=== PATIENT | female | born 1975 | race Caucasian/White ===

== ENCOUNTER 2019-05-23 11:19 | Inpatient (IN) ==
[2019-05-23] MEDS: NS 1,000 ML IV SCH ×2 (12:06→19:48)
[2019-05-23 12:22] LABS: BASO# 0.04 X1000 (0.0-0.2); BASO% 0.3 % (0.0-0.8); EOS# 0.13 X1000 (0.0-0.7); EOS% 0.8 % (0.0-10.0); HEMATOCRIT 48.9 % (37.0-47.0); HEMOGLOBIN 16.1 g/dL (12.0-16.0); IMM GRAN# 0.04 X1000 (0.0-0.04); IMM GRAN% 0.3 % (0.0-0.5); LYMPH# 2.28 X1000 (1.2-3.4); LYMPH% 14.5 % (20.5-51.1); MCH 31.4 PG (27-31); MCHC 32.9 g/dL (33-37); MCV 95.3 FL (81-99); MONO# 1.28 X1000 (0.11-0.59); MONO% 8.1 % (1.7-9.3); MPV 11.6 FL (7.4-10.4); NEUT# 11.97 X1000 (1.4-6.5); PLT 374 X1000 (130-400); RBC 5.13 XMIL (4.2-5.4); WBC 15.74 X1000 (4.8-10.8)
[2019-05-23 12:37] LABS: INR 0.96; PROTIME 13.6 Seconds (11.0-16.0); PTT 32.9 Seconds (22.3-41.8)
[2019-05-23 12:47] LABS: ALB/GLOB RATIO 1.2; ALBUMIN 4.4 g/dL (3.5-5.0); CALCIUM 9.7 mg/dL (8.8-10.2); CREATININE 1.1 mg/dL (0.5-0.9); POTASSIUM 3.5 mmol/L (3.5-5.1); TOTAL BILIRUBIN 0.96 mg/dL (0.20-1.00)
--- NOTE | 2019-05-23 13:35 | Diag Imaging Result Doc PS360 ---
EXAM: CT ABD/PELVIS W/IV CONT ONLY 05/23/2019 HISTORY: abd pain, vomiting, blood per rectum TECHNIQUE: This exam was performed using automated exposure control, adjustment of mA or kV according to patient size, and/or use of iterative reconstruction technique. COMMENT: There is dependent atelectasis in the right lower lobe similar in appearance to the previous study of 07/19/2018. The stomach is not distended. The aorta is not distended. The mesenteric and renal arteries are patent. There are no gallstones. The adrenal glands and spleen are within normal limits. There is no evidence of acute disease in the liver. There is mucosal thickening in the splenic flexure and descending colon which was not the case on the previous study. The small bowel is not distended. There are multiple renal cysts. No evidence of hydronephrosis is present. There is no evidence of significant adenopathy. Pelvis: The appendix is normal in appearance. The sigmoid colon is relatively normal in appearance. There is no evidence of free fluid or masses. The regional skeleton appears to be intact. IMPRESSION: Colitis involving the splenic flexure and descending colon but apparently sparing the ascending colon, distal sigmoid colon and rectum. Electronically signed by Tj Sen 05/23/2019 1:33 PM
[2019-05-23 14:20] LABS: URINE SOURCE CLEAN CATCH
[2019-05-23 14:29] LABS: BILIRUBIN URINE NEGATIVE (NEGATIVE); BLOOD URINE SMALL (NEGATIVE); COLOR YELLOW; GLUCOSE URINE NEGATIVE (NEGATIVE); KETONE URINE NEGATIVE (NEGATIVE); LEUKOCYTES URINE NEGATIVE (NEGATIVE); NITRITE URINE NEGATIVE (NEGATIVE); PROTEIN URINE TRACE mg/dL (NEGATIVE); TURBIDITY URINE CLEAR (CLEAR); UROBILINOGEN URINE NORMAL (NORMAL)
[2019-05-23 14:30] LABS: UR EPITHELIAL CELLS <10 /HPF (<10); URINE BACTERIA 1+ /HPF; URINE RBC <10 /HPF (<10); URINE WBC <10 /HPF (<10)
[2019-05-23 14:45] LABS: SP GRAVITY URINE 1.005
[2019-05-23] MEDS ORDERED: TYLENOL PO ONE (15:12)
--- NOTE | 2019-05-23 16:15 | PROVIDER DOCUMENTATION ---
This chart was entered by Marsha Tarango Scribe, acting as scribe for Kashif Robbins MD. HPI-Abdominal Pain/GI Problem - General Chief Complaint: GI Bleed Stated Complaint: PASSING BLOOD Time Seen by Provider: 05/23/19 11:36 Source: patient Allergies/Adverse Reactions: Patient Allergies Allergy/AdvReac Type Severity Reaction Status Date / Time Latex, Natural Rubber Allergy Intermediate HIVES Verified 05/23/19 11:48 Home Medications: Home Medication List Medication Instructions Recorded Confirmed Last Taken Type Enalapril Maleate 12/24/17 12/24/17 Unknown History Eszopiclone 12/24/17 12/24/17 Unknown History Hydrochlorothiazide 25 mg PO DAILY 12/24/17 12/24/17 Unknown History Metoprolol [Lopressor] 50 mg PO BID 12/24/17 12/24/17 Unknown History Omeprazole [Prilosec] 20 mg PO DAILY #21 cap 12/24/17 Unknown Rx Ondansetron HCl [Zofran] 4 mg PO Q6HR PRN #10 tab 12/24/17 Unknown Rx Phentermine HCl 12/24/17 12/24/17 Unknown History Sucralfate [Carafate Liquid] 1 gm PO Q6HR #240 ml 12/24/17 Unknown Rx Verapamil HCl [Verapamil ER] 12/24/17 12/24/17 Unknown History Hydrocodone/Acetaminophen [[place] 1 ea PO Q4-6H PRN PRN #20 tab 07/19/18 Unknown Rx 10-325 Tablet] - History of Present Illness-ABD Nature of Presenting Problems: 43 y/o female presents to ED with abdominal pain, hematemesis, and nausea onset 3 days ago. Pt reports seeing bright red blood in her stool. Pt states she takes a lot of aspirin and aleve. Pt reports she has not been eating because it exacerbates her symptoms. Pt is alert and oriented. Abdominal Pain Onset Location: reports: generalized abdomen Pain Radiation: reports: no radiation Quality of Pain: reports: aching Severity in ED: reports: moderate Onset/Duration: reports: 3 days ago Timing: reports: still present Activities at Onset: reports: none Exposure to sick contacts?: No Modifying Factors: worse with: eating Associated Symptoms: reports: nausea, other (hematemesis; abdominal pain) Last BM: this morning Dark Stools Present?: reports: bright red blood Rectal Bleeding: reports: blood mixed with stool Rectal Pain: reports: none Similar Symptoms Previously?: No Recently seen or treated by another doctor?: No Review of Systems - Adult - REVIEW OF SYSTEMS - ADULT Constitutional: denies: chills, fever Eyes: reports: no symptoms reported Ears, Nose, Mouth & Throat: reports: no symptoms reported Cardiovascular: denies: chest pain, palpitations Respiratory: denies: cough, shortness of breath Gastrointestinal: reports: abdominal pain, hematemesis, nausea. denies: diarrhea, vomiting Genitourinary: reports: no symptoms reported Musculoskeletal: denies: back pain, joint pain Integumentary: reports: no symptoms reported Neurological: denies: dizziness/vertigo, seizure Psychiatric: reports: no symptoms reported Endocrine: reports: no symptoms reported Hematologic/Lymphatic: reports: no symptoms reported Allergic/Immunologic: reports: no symptoms reported All Other Systems: Reviewed and Negative Past History - Adult - PAST MEDICAL HISTORY-ADULT Review of Records: reports: Old Records Reviewed, Nursing Assessment Review, Medications Reviewed Major Childhood Illnesses: reports: denies history Cardiovascular: reports: HTN, heart valve problem, murmur, other (MVP) Respiratory: reports: denies history Gastrointestinal: reports: denies history Obstetrical/Gynecological: reports: denies history Genitourinary: reports: kidney stones Musculoskeletal: reports: denies history Neurological: reports: headaches/migraines Endocrine/Immune: reports: denies history Other Conditions: reports: denies history - PRIOR SURGERIES/PROCEDURES Surgical/Procedure History: reports: hysterectomy, BTL, breast (reduction), back/neck (cervical fusion) - PRIOR HOSPITALIZATIONS Prior Hospitalizations: reports: for similar symptoms - IMMUNIZATION STATUS Childhood Immunizations: See Nurse Assessment Flu Vaccine: See Nurse Assessment - FAMILY HISTORY Family History: cancer, HTN - SOCIAL HISTORY Smoking: less than 1 pack/day Provider spent 3-5 mins advising pt. on dangers of tobacco.: Discussed manners to quit use, and f/u contacts for add'l counseling. Substance Use: none/never Alcohol Use Frequency: never Living Situation: family Physical Exam-General - PHYSICAL EXAM-ADULT Initial Vital Signs Reviewed: Yes - CONSTITUTIONAL General Appearance: appears well, alert, no apparent distress - EYES Eyes: PERRL/EOMI, pink conjunctivae - HEAD, EARS, NOSE, MOUTH & THROAT HENMT: normocephalic/atraumatic, moist mucous membranes, normal ENT inspection - NECK Neck: non-tender, full range of motion - RESPIRATORY Respiratory: chest non-tender, lungs clear, normal breath sounds - CARDIOVASCULAR Cardiovascular: tachycardia - GASTROINTESTINAL (ABDOMEN) Abdominal Exam: normal bowel sounds, non tender, soft - MUSCULOSKELETAL Back Exam: normal inspection, no CVA tenderness, no vertebral tenderness Extremity: normal range of motion, non-tender, normal gait - SKIN Integumentary: normal color, warm/dry - NEUROLOGIC Neurologic: grossly normal - PSYCHIATRIC Psych/Mental Status: normal mood/affect, normal thought content, normal thought process, oriented x 3 Progress - PLAN OF CARE/RESULTS Progress/Plan/Lab Results: Vital Signs - 8 hr 05/23/19 11:22 Temperature 97.3 F L Pulse Rate 111 H Respiratory Rate 20 Blood Pressure 141/109 O2 Sat by Pulse Oximetry 99 Orders Category Date Time Status CT ABD/PELVIS W/IV CONT ONLY [CT] Stat Exams 05/23/19 11:44 Completed CBC WITH ELECTRONIC DIFF [HEME] Stat Lab 05/23/19 11:55 Completed COMPREHENSIVE METABOLIC PANEL [CHEM] Stat Lab 05/23/19 11:55 Completed OCCULT BLOOD SCREENING [STOOL] Stat Lab 05/23/19 14:00 Completed PROTIME WITH INR [COAG] Stat Lab 05/23/19 11:55 Completed PTT [COAG] Stat Lab 05/23/19 11:55 Completed STOOL CULTURE [RM] Stat Lab 05/23/19 11:44 Uncollected TYPE & SCREEN [BBK] Stat Lab 05/23/19 11:55 Completed UA [URINALYSIS W/POSS RFLX CULT] [URINALYSIS] Stat Lab 05/23/19 14:12 Completed 0.9% Sodium Chloride Inj [Ns] 1,000 ml Med 05/23/19 11:45 Active IV 125 mls/hr GI Bleed (possible) Stat Oth 05/23/19 11:42 Ordered Laboratory Tests 05/23/19 05/23/19 05/23/19 11:55 11:55 11:55 WBC 15.74 H RBC 5.13 Hgb 16.1 H Hct 48.9 H MCV 95.3 MCH 31.4 H MCHC 32.9 L RDW Std Deviation 13.0 Plt Count 374 MPV 11.6 H Immature Gran % (Auto) 0.3 Neut % (Auto) 76.0 H Lymph % (Auto) 14.5 L [place] % (Auto) 8.1 Eos % (Auto) 0.8 Baso % (Auto) 0.3 Immature Gran # (Auto) 0.04 Neut # (Auto) 11.97 H Lymph # (Auto) 2.28 [place] # (Auto) 1.28 H Eos # (Auto) 0.13 Baso # (Auto) 0.04 PT 13.6 INR 0.96 PTT (Actin FS) 32.9 Sodium 141 Potassium 3.5 Chloride 96 L Carbon Dioxide 26 Anion Gap 19 BUN 21 Creatinine 1.1 H Estimated GFR/1.73 m2 54 BUN/Creatinine Ratio 19 Glucose 118 H Calculated Osmolality 285 Calcium 9.7 Total Bilirubin 0.96 AST 16 ALT 13 Alkaline Phosphatase 152 H Total Protein 8.0 Albumin 4.4 Globulin 3.6 Albumin/Globulin Ratio 1.2 Urine Source Urine Color Urine Turbidity Urine pH Ur Specific Grahn Urine Protein Ur Glucose (Stick) Ur Ketones (Stick) Urine Blood Urine Nitrite Urine Bilirubin Urobilinogen Dipstick Urine Leukocytes Urine WBC (Auto) Urine RBC (Auto) U Epithel Cells (Auto) Urine Bacteria (Auto) Blood Type Weak D (Du) Antibody Screen 05/23/19 05/23/19 11:55 14:12 WBC RBC Hgb Hct MCV MCH MCHC RDW Std Deviation Plt Count MPV Immature Gran % (Auto) Neut % (Auto) Lymph % (Auto) [place] % (Auto) Eos % (Auto) Baso % (Auto) Immature Gran # (Auto) Neut # (Auto) Lymph # (Auto) [place] # (Auto) Eos # (Auto) Baso # (Auto) PT INR PTT (Actin FS) Sodium Potassium Chloride Carbon Dioxide Anion Gap BUN Creatinine Estimated GFR/1.73 m2 BUN/Creatinine Ratio Glucose Calculated Osmolality Calcium Total Bilirubin AST ALT Alkaline Phosphatase Total Protein Albumin Globulin Albumin/Globulin Ratio Urine Source CLEAN CATCH Urine Color YELLOW Urine Turbidity CLEAR Urine pH 6.0 Ur Specific Grahn 1.005 Urine Protein TRACE A Ur Glucose (Stick) NEGATIVE Ur Ketones (Stick) NEGATIVE Urine Blood SMALL A Urine Nitrite NEGATIVE Urine Bilirubin NEGATIVE Urobilinogen Dipstick NORMAL Urine Leukocytes NEGATIVE Urine WBC (Auto) <10 Urine RBC (Auto) <10 U Epithel Cells (Auto) <10 Urine Bacteria (Auto) 1+ Blood Type O NEGATIVE Weak D (Du) WEAK D NEGATIVE Antibody Screen NEGATIVE Stool Occult Blood is negative. Result Diagrams: 05/23/19 11:55 05/23/19 11:55 - CT/MRI 1 CT Study: Abdomen, Pelvis Impression: See EMR Report ([facility] - [address], [address], [place] [address] [facility] - [address] [place] [address] Department of Imaging Patient: KILO GARAY Date: 05/23/19MR#: [id number] : 1975ADM Status: REG ERAt#: [id number] Age/Sex: 43/FRoom/Bed: Loc: ED Ordering Physician: Kashif Robbins MD Family Physician: Marques Curran MD Reason for Procedure: abd pain, vomiting, blood per rectum Signed EXAM: CT ABD/PELVIS W/IV CONT ONLY 05/23/2019 HISTORY: abd pain, vomiting, blood per rectum TECHNIQUE: This exam was performed using automated exposure control, adjustment of mA or kV according to patient size, and/or use of iterative reconstruction technique. COMMENT: There is dependent atelectasis in the right lower lobe similar in appea maris to the previous study of 07/19/2018. The stomach is not distended. The aorta is not distended. The mesenteric and renal arteries are patent. There are no gallstones. The adrenal glands and spleen are within normal limits. There is no evidence of acute disease in the liver. There is mucosal thickening in the splenic flexure and descending colon which was not the case on the previous study. The small bowel is not distended. There are multiple renal cysts. No evidence of hydronephrosis is present. There is no evidence of significant adenopathy. Pelvis: The appendix is normal in appearance. The sigmoid colon is relatively normal in appearance. There is no evidence of free fluid or masses. The regional skeleton appears to be intact. IMPRESSION: Colitis involving the splenic flexure and descending colon but apparently sparing the ascending colon, distal sigmoid colon and rectum. Electronically signed by Tj Sen 05/23/2019 1:33 PM 05/23/19 1333 Interpreting Physician: Tj Sen MD Dictated Date/Time: 05/23/19 1327 cc: Kashif Robbins MD; Marques Curran MD) - CONSULTS/PCP/HOSPITALIST Notification #1 *Consult/PCP/Hospitalist*: ISREAL Liz for hospitalist Time Discussed: 15:49 Reason/Comments: GI Bleed, colitis Consult Disposition: Admit Departure - Departure Date of Disposition Decision: 05/23/19 Time of Disposition Decision: 15:49 DIAGNOSIS: Colitis, Tobacco use GI bleed Qualifiers: GI bleed type/associated pathology: unspecified gastrointestinal hemorrhage type Qualified Code(s): K92.2 - Gastrointestinal hemorrhage, unspecified Disposition: ADMITTED INPATIENT 09 Certified Medical Emergency: Emergent Condition: Stable Referrals and Follow-Ups: Marques Curran MD [Primary Care Provider] - Discharge Education: Steps to Quit Smoking, [id number] - Critical Care Note This patient required my direct & personal management of CC.: No Attestation - Physician/ ANDRES Attestation Patient care was provided by Advanced Practice Provider:: No The physician spent face to face time with patient:: Yes Advanced Practice Provider documentation review:: Supervising physician onsite and consulted in the evaluation and care of this patient. The physician did have a face to face encounter with the patient. This chart was documented by the indicated scribe, (Marsha Tarango Scribe) and accurately reflects the services I performed and decisions made by me, Kashif Robbins MD, as attested by the provider's signature.
[2019-05-23] MEDS ORDERED: TYLENOL PO PRN (16:24)
[2019-05-23] MEDS ORDERED: ZOFRAN IV PRN (16:24)
[2019-05-23] MEDS: FLAGYL 500 MG/NS 500 MG/100 ML IVPB IV SCH (17:04)
[2019-05-23 17:06] LABS: IRON SATURATION 23 %; TIBC 297 ug/dL; TOTAL IRON 69 ug/dL (49-151); UNBOUND IRON 228 ug/dL (112-346)
[2019-05-23 17:26] LABS: FERRITIN 167 ng/mL (13-150)
--- NOTE | 2019-05-23 17:30 | HISTORY AND PHYSICAL ---
PRIMARY CARE PROVIDER: Dr. Curran. CHIEF COMPLAINT: Lower abdominal pain with GI bleeding. HISTORY OF PRESENT ILLNESS: Ms. Yani Gilmore is a 43-year-old female with medical history of severe hypertension, MVR and TVR regurgitation, degenerative disk disease, GERD, and kidney stones, now presents with a 2-3 day complaint of bilateral lower abdominal pain along with bloody stools. She states she did not come because she was begging her to drive her here since she did not feel so good. Apparently he would not drive her here and so she drove herself here today. She is a little bit hypotensive but she is on 4 different antihypertensives and took 2 of them this morning. Her hemoglobin and hematocrit are stable but she does have a colitis on her CT scan, along with positive blood in the stool on her sample. So, will contact will consult Gastroenterology and start her on Flagyl and Levaquin and monitor her in the [facility] due to the lower blood pressures. Other symptoms she has been having is nausea. No vomiting. She has been weak and tired. Just sips of fluids, no appetite at all. For the last 6 months she admits to taking Aleve and aspirin for lower back and neck pain along with headaches. PAST MEDICAL HISTORY: 1. Hypertension. 2. Mitral valve regurgitation. 3. Tricuspid valve regurgitation. 4. Degenerative disk disease. 5. GERD. 6. Kidney stones. 7. Migraines. PAST SURGICAL HISTORY: 1. Anterior cervical disk fusion. 2. Bilateral tubal ligation. 3. Hysterectomy with oophorectomy. 4. Breast reduction. SOCIAL HISTORY: Half pack per day smoker for 10 years. Denies alcohol or illicit drug use. FAMILY HISTORY: Mother of a brain aneurysm at the age of 40 and her mother also had breast cancer. ALLERGIES: Latex. HOME MEDICATIONS: 1. Hydrochlorothiazide 12.5 mg p.o. daily. 2. Lopressor 50 mg p.o. twice daily. 3. Vasotec 10 mg p.o. daily. 4. Verapamil 240 mg p.o. daily. REVIEW OF SYSTEMS: Fourteen point review of systems are complete and all were negative except for those mentioned above in HPI. PHYSICAL EXAMINATION: VITAL SIGNS: Temperature 97.3 degrees, heart rate 89, respiratory rate 19 blood pressure 106/74, O2 saturation 97% on room. GENERAL: Ms. Yani Gilmore is a 43-year-old female. She is in no acute distress. She is able answer questions appropriately. HEENT: Atraumatic, normocephalic. Pupils equal, round, reactive to light. Extraocular movements intact. Mucous membranes are dry. NECK: Trachea midline. CARDIOVASCULAR: S1, S2. Regular rate and rhythm. No rubs, gallops, murmurs. No lower extremity edema. There are +2 dorsalis and radial pulses. Negative JVD or carotid bruits. PULMONARY: Clear to auscultation. Bilateral breath sounds. No accessory muscle use or work of breathing noted. GI: Soft. Tender in the bilateral lower quadrants. Positive bowel sounds x4. EXTREMITIES: Moves all extremities equally. Full range of motion. NEUROLOGIC: A O x3. Follows commands. Sensory is intact. SKIN: Warm, dry, intact but pale. LABORATORY DATA: White blood cells 15,000, hemoglobin 16, hematocrit 48, platelet count 374,000. INR 0.96, PTT is 32.9. Sodium 141, potassium 3.5, BUN 21, creatinine is 1.1, glucose 118, calcium 9.7, bilirubin 0.96, AST 16, ALT 13, albumin 4.4. Urinalysis: Trace protein, small blood, 1+ bacteria, otherwise negative. IMAGING: Abdominal and pelvic CT: Colitis involving the splenic flexure and descending colon. ASSESSMENT AND PLAN: 1. Colitis in the splenic flexure and descending colon with elevated white blood cell count. Gastrointestinal tract bleeding likely associated to the colitis. Stool samples ordered, positive for blood in the stool. She is going to be on Levaquin and Flagyl. She will get IV fluid hydration. 2. Gastrointestinal bleed. Almost sure it is probably from the colitis and it is more likely just a sloughing, but the bleeding has been going on for about 3 days and she says it is bright red blood. Hemoglobin and hematocrit are stable, so. She is a little hypotensive but that is likely secondary to being dehydrated and taken two of her antihypertensives this morning. We will go ahead and consult Dr. Cast primary request. 3. Hypertension. She is on 4 different medications. Will hold for now and resume once her blood pressure is more stable. 4. Gastroesophageal reflux disease. She is going to be on Nexium IV q.24 hours and that will be IV. 5. Deep venous thrombosis prophylaxis. SCDs. 6. Tobacco abuse cessation discussed. Patient seen and examined by me face to face, all the laboratory, vitals signs and images were reviewed, patient presented to the Emergency Department with abdominal pain, diarrhea, and bloody stools, her abdomen is tender mostly the lower area and left side, no sings of peritoneal irritation, CT scan showed Colitis of the splenic flexure and descending colon, I will place the patient on antibiotics, IV fluids, we will consult GI department, hopefully she will be scope soon, I agree with the [employer]'s assessment and plan, Mic Rivas MD. Dictated by ISREAL Robertson for Mic Mcintosh MD cc: ISREAL Robertson MD MTDD
[2019-05-23] MEDS: NEXIUM IV SCH (17:36)
[2019-05-23] MEDS: SODIUM CHLORIDE 0.9% INJ SCH (17:37)
[2019-05-23] MEDS ORDERED: GOLYTELY PO ONE (17:40)
--- NOTE | 2019-05-23 19:05 | GASTROENTEROLOGY CONSULTATION ---
DATE: 05/23/2019 REQUESTING PHYSICIAN: Dr. Rizo. PRIMARY PHYSICIAN: Dr. Marques Curran. REASON FOR CONSULTATION: GI bleeding. HISTORY OF PRESENT ILLNESS: Ms. Gilmore is a 43-year-old female who was admitted today with lower abdominal pain and bright red blood in the stools. The patient has been taking a lot of NSAIDs, Aleve and aspirin for degenerative disk disease. She presented to the hospital for abdominal pain in the left side of the abdomen and perineal region, and started passing maroon stools which turned into bright red. She had imaging done in the hospital which showed evidence of colitis. Gastroenterology is consulted for further management. The patient denies any prior EGD or colonoscopy done in the past. She denies any previous history of peptic ulcer disease. PAST MEDICAL HISTORY: 1. Hypertension. 2. Mitral valve regurgitation. 3. Tricuspid valve regurgitation. 4. Degenerative disk disease. 5. GERD. 6. Kidney stones. 7. Migraine. 8. NSAID abuse. She takes aspirin and Aleve for lower back pain and neck pain, and headaches for the last 6 months. PAST SURGICAL HISTORY: Anterior cervical disk fusion, bilateral tubal ligation, hysterectomy with oophorectomy and breast reduction. SOCIAL HISTORY: She smokes half a pack a day for the last 10 years. Denies alcohol abuse. Denies any illicit drug abuse. She is . FAMILY HISTORY: Mother of brain aneurysm at age 40. Her mother also had breast cancer. ALLERGIES: Latex. MEDICATIONS: At home: Hydrochlorothiazide, Lopressor, Vasotec and verapamil. Medications in the hospital include GoLytely, Tylenol, Nexium twice daily, Flagyl IV q.8, Levaquin 500 mg IV once daily, normal saline 125 mg/h, Zofran 4 mg IV q.4 hours, Carafate 1 g q.6 hours. DIET: She is on clear liquid diet. REVIEW OF SYSTEMS: Denies any fevers, rigors, chills, chest pain, shortness of breath or dyspnea. Denies any vomiting blood. Does complain of blood in the stools. Does complain of chronic neck and back pain, and headaches. Denies any neurologic complaints. PHYSICAL EXAMINATION: Temperature of 97.3 degrees, pulse rate of 89, respiratory rate of 19, blood pressure 106/74, saturating 97% on room air. Body weight of 190 pounds. BMI of 34.8 kg/m2. Generally Ms. Gilmore is lying in bed, in no acute distress.HEENT: No pallor. No icterus. Pupils equal, reactive to light. Neck is supple. Abdomen: Discomfort in the region and left side of the abdomen. No rebound or guarding. Extremities: No cyanosis, clubbing or edema. Neurologic: Alert, awake and oriented x3. LABORATORY DATA: Hemoglobin and hematocrit are 16.1 and 48.9, white count of 15.74, platelet count of 374,000. Sodium 141, potassium 3.5, chloride 96, bicarbonate 23, anion gap 19, BUN of 21, creatinine 1.1, glucose of 118, calcium 9.7. Iron level of 69, percent saturation of 23, ferritin of 167. Total bilirubin is 0.96, AST 16, ALT 13, alkaline phosphatase 150, total protein is 8, albumin of 4.4. INR of 0.96, PT of 13.6, PTT of 32.9. Urinalysis is showing trace protein, small blood. Occult blood was negative. DIAGNOSTIC DATA: CT of the abdomen and pelvis was done, which showed dependent atelectasis in the right lower lobe; mucosal thickening in the splenic flexure and descending colon, which was not the case on previous study; multiple renal cysts; sigmoid colon is relatively normal in appearance. IMPRESSION: 1. Colitis in the splenic flexure and descending colon on CT scan. 2. Gastrointestinal bleed. 3. Blood in the stools. 4. Obesity; body mass index of 34.8. 5. Hypertension. 6. Reflux disease. 7. Chronic neck and back pain, taking chronic nonsteroidal anti-inflammatory drugs. 8. Tobacco abuse. 9. Leukocytosis. RECOMMENDATIONS: 1. Continue on clear liquid diet. We will prep her for colonoscopy tomorrow with Dr. Do. She will continue Levaquin and Flagyl. She will continue IV fluids. We will continue to watch her blood counts. So far they have been stable. She will continue on PPIs and Carafate. The patient was counseled to quit smoking. The patient was counseled to avoid excessive NSAIDs. 2. A stool culture has been ordered. We will follow up on that. 3. We will schedule for colonoscopy tomorrow by Dr. Do. The risks, benefits, indications and alternatives were discussed with the patient. All questions were answered. Further recommendations to follow pending the hospital course. The above plan was discussed with the patient. All questions were answered. Please call us with any further questions. cc: MD Mic Delacruz MD Jay Pohl, MD MTDD
[2019-05-23] MEDS: LEVAQUIN 500 MG/D5W 500 MG/100 ML IVPB IV SCH (19:59)
[2019-05-23] MEDS: CARAFATE LIQUID PO SCH (21:09)
[2019-05-24] MEDS: CARAFATE LIQUID PO SCH ×4 (01:17→21:00)
[2019-05-24] MEDS: FLAGYL 500 MG/NS 500 MG/100 ML IVPB IV SCH ×3 (01:17→17:16)
[2019-05-24] MEDS: NS 1,000 ML IV SCH (04:01)
[2019-05-24] MEDS: SODIUM CHLORIDE 0.9% INJ SCH (05:27)
[2019-05-24] MEDS: NEXIUM IV SCH ×2 (05:30→17:16)
[2019-05-24 05:57] LABS: BASO# 0.04 X1000 (0.0-0.2); BASO% 0.4 % (0.0-0.8); EOS# 0.24 X1000 (0.0-0.7); EOS% 2.3 % (0.0-10.0); HEMOGLOBIN 12.6 g/dL (12.0-16.0); IMM GRAN# 0.03 X1000 (0.0-0.04); IMM GRAN% 0.3 % (0.0-0.5); LYMPH# 2.38 X1000 (1.2-3.4); LYMPH% 22.6 % (20.5-51.1); MCH 31.9 PG (27-31); MCHC 33.2 g/dL (33-37); MCV 96.2 FL (81-99); MONO# 0.82 X1000 (0.11-0.59); MONO% 7.8 % (1.7-9.3); MPV 11.5 FL (7.4-10.4); NEUT# 7.02 X1000 (1.4-6.5); NEUT% 66.6 % (42.2-75.2); PLT 215 X1000 (130-400); RBC 3.95 XMIL (4.2-5.4); RDW 12.7 % (11.5-14.5); WBC 10.53 X1000 (4.8-10.8)
[2019-05-24 06:05] LABS: INR 1.07; PROTIME 14.7 Seconds (11.0-16.0); PTT 37.5 Seconds (22.3-41.8)
[2019-05-24 06:24] LABS: AGAP 14; ALB/GLOB RATIO 1.1; ALBUMIN 3.2 g/dL (3.5-5.0); ALKALINE PHOSPHATASE 99 U/L (32-104); BUN 16 mg/dL (8-22); CALCIUM 8.2 mg/dL (8.8-10.2); CHLORIDE 102 mmol/L (98-107); COSMO 282; CREATININE 0.8 mg/dL (0.5-0.9); ESTIMATED GFR > 60; GLUCOSE 94 mg/dL (70-104); GOT 11 U/L (10-30); GPT 10 U/L (10-36); MAGNESIUM 1.6 mg/dL (1.5-2.7); POTASSIUM 3.1 mmol/L (3.5-5.1); SODIUM 141 mmol/L (136-145); TCO2 25 mmol/L (25-35); TOTAL BILIRUBIN 0.56 mg/dL (0.20-1.00); TOTAL PROTEIN 6.2 g/dL (6.3-8.3)
--- NOTE | 2019-05-24 09:10 | PROGRESS NOTE ---
DATE: 05/24/2019 SUBJECTIVE: The patient is resting comfortably in bed. She is still complaining of lower abdominal discomfort, but compared with yesterday she feels a little bit better. She is prepared for a colonoscopy today. We will wait for the findings and recommendations. I will add potassium to her fluids seeing her potassium level is a little bit low. OBJECTIVE: Vital Signs: Temperature 99.1 degrees, pulse 94, respiratory rate 16, blood pressure 128/84, and oxygen saturation 95% on room air. HEENT: Head normocephalic. No trauma. PERRLA. Neck: Supple. No JVD. No masses. Central trachea. Chest: Clear to auscultation. No wheezing. No rales. Abdomen: Soft. Some tenderness to palpation at the level of the lower abdomen. No signs of peritoneal irritation. Positive bowel sounds. Extremities: No edema. No clubbing. No cyanosis. Neurological: The patient is alert and oriented x3. No focal deficits. LABORATORY: WBC 10.5, hemoglobin 12.6, hematocrit 38, and platelets 215,000. Sodium 141, potassium 3.1, chloride 102, bicarbonate 25, BUN 16, creatinine 0.8 glucose 94, calcium 8.2, and magnesium 1.6. ASSESSMENT AND PLAN: 1. Colitis in the splenic flexure and descending colon with elevated white blood cell count. Gastroenterology Department has been consulted, this is likely associated with colitis. As per the patient, she has been having blood in the stools. We are going to continue with levofloxacin, Flagyl and IV fluids. 2. Gastrointestinal bleed, likely due to colitis, but this patient has been prepared for a colonoscopy to be done today. We will wait for the results and recommendations. In the meantime, we will continue with same management. 3. Acute kidney injury resolved. 4. Hypertension. I will hold all four of the blood pressure medications. She is on verapamil, metoprolol, hydrochlorothiazide and enalapril. Even though, she has been getting fluids and she is not on blood pressure medication, the blood pressure has been mostly in the 90s and 100s. 5. Hypokalemia. I will continue with the IV fluids with potassium. 6. GERD. Continue with PPIs, and DVT prophylaxis with sequential compression devices. 7. Tobacco abuse. This patient has been advised against tobacco use. I will continue with daily cessation education. 8. This patient has been taking NSAIDs every day for a few months now. She has been advised to stop it since she is having issues with GI bleed. cc: Mic Mcintosh MD
[2019-05-24] MEDS: NS + KCL 20 MEQ 1,000 ML IV SCH ×3 (09:15→23:19)
[2019-05-24] MEDS ORDERED: DIPRIVAN 1% ONE ×2 (11:38→12:15)
[2019-05-24] MEDS ORDERED: XYLOCAINE-MPF 2% ONE (11:38)
[2019-05-24] MEDS ORDERED: VERSED ONE (12:15)
--- NOTE | 2019-05-24 14:07 | OPERATIVE NOTE ---
PROCEDURE DATE: 05/24/2019 PROCEDURE: Colonoscopy and biopsy. PREOPERATIVE DIAGNOSIS: Lower abdominal pain and rectal bleeding. POSTOPERATIVE DIAGNOSIS: Diffuse mild help limiting colitis, more severe in the left colon likely, infectious. DESCRIPTION OF PROCEDURE: After informed consent and adequate intravenous sedation, the scope introduced all the way into the ascending colon which is normal. Transverse colon is normal. In the distal transverse colon and left colon, there is diffuse patchy colitis. It is not segmental or antimesenteric border like ischemic, so I suspect it is mostly infectious colitis in which is self-limiting and superficial. Biopsies were obtained. The scope was withdrawn. The patient tolerated the procedure well without any immediate complications. RECOMMENDATION: The patient may be treated symptomatically and discharged home. We will see her in followup in 3 weeks. cc: Licha Do MD
[2019-05-24] MEDS: LEVAQUIN 500 MG/D5W 500 MG/100 ML IVPB IV SCH ×2 (15:03→16:24)
[2019-05-24] MEDS: BENTYL PO SCH (15:03)
[2019-05-25] MEDS: FLAGYL 500 MG/NS 500 MG/100 ML IVPB IV SCH ×2 (01:17→08:09)
[2019-05-25] MEDS: CARAFATE LIQUID PO SCH ×2 (01:17→08:08)
[2019-05-25] MEDS: SODIUM CHLORIDE 0.9% INJ SCH (04:25)
[2019-05-25] MEDS: NEXIUM IV SCH (04:25)
[2019-05-25 05:56] LABS: BASO# 0.02 X1000 (0.0-0.2); BASO% 0.3 % (0.0-0.8); EOS# 0.28 X1000 (0.0-0.7); EOS% 4.6 % (0.0-10.0); HEMATOCRIT 35.1 % (37.0-47.0); HEMOGLOBIN 11.5 g/dL (12.0-16.0); LYMPH# 2.16 X1000 (1.2-3.4); LYMPH% 35.2 % (20.5-51.1); MCH 31.6 PG (27-31); MCHC 32.8 g/dL (33-37); MCV 96.4 FL (81-99); MONO# 0.53 X1000 (0.11-0.59); MONO% 8.6 % (1.7-9.3); MPV 11.3 FL (7.4-10.4); NEUT# 3.14 X1000 (1.4-6.5); NEUT% 51.3 % (42.2-75.2); PLT 192 X1000 (130-400); RBC 3.64 XMIL (4.2-5.4); RDW 12.4 % (11.5-14.5); WBC 6.13 X1000 (4.8-10.8)
[2019-05-25] MEDS: BENTYL PO SCH (06:36)
[2019-05-25 06:37] LABS: AGAP 10; ALB/GLOB RATIO 1.2; ALKALINE PHOSPHATASE 89 U/L (32-104); BUN 9 mg/dL (8-22); CALCIUM 8.1 mg/dL (8.8-10.2); CHLORIDE 108 mmol/L (98-107); COSMO 284; CREATININE 0.7 mg/dL (0.5-0.9); ESTIMATED GFR > 60; GLUCOSE 98 mg/dL (70-104); GOT 11 U/L (10-30); GPT 10 U/L (10-36); MAGNESIUM 1.5 mg/dL (1.5-2.7); POTASSIUM 3.4 mmol/L (3.5-5.1); SODIUM 143 mmol/L (136-145); TCO2 25 mmol/L (25-35); TOTAL BILIRUBIN 0.38 mg/dL (0.20-1.00); TOTAL PROTEIN 5.6 g/dL (6.3-8.3)
[2019-05-25] MEDS ORDERED: KLOR-CON PO ONE (07:18)
[2019-05-25 08:17] VITALS: BP 167/100
[2019-05-25] MEDS ORDERED: LOPRESSOR PO SCH (09:00)
[2019-05-25] MEDS ORDERED: ISOPTIN SR PO SCH (09:00)
--- NOTE | 2019-05-25 15:09 | DISCHARGE SUMMARY ---
ADMISSION DATE: 05/23/2019 DISCHARGE DATE: 05/25/2019 BEHAVIORAL HEALTH TECHNICIAN: Dr. Marques Curran. CONSULTS: Dr. Do, Dr. Cast. ADMITTING DIAGNOSIS: 1. Colitis. 2. Gastrointestinal bleed. 3. Hypertension. 4. Gastroesophageal reflux disease. 5. Tobacco dependency. DISCHARGE DIAGNOSIS: 1. Colitis. 2. Gastrointestinal bleed. 3. Acute kidney injury, resolved. 4. Hypertension. 5. Hypokalemia. 6. Gastroesophageal reflux disease. 7. Tobacco dependency. PROCEDURES: Colonoscopy performed on 05/23/[address] Do showed diffuse mild limiting colitis more severe in the left colon, likely infectious. CT of the abdomen and pelvis performed on 05/23/2019 showed colitis involving the splenic flexure and descending colon. HOSPITAL COURSE: Ms Gilmore is a 43-year-old female who was admitted on 05/23/2019 with lower abdominal pain and GI bleeding. The patient has a past medical history of hypertension, MVR and TVR regurgitation, degenerative disk disease, GERD and kidney stones. The patient presented to the ER where she was having 2 to 3 day course of bilateral lower abdominal pain with bloody stools. CT scan was positive for colitis on admission along with positive blood in the stool sample. Gastroenterology was consulted. The patient was started on Flagyl and Levaquin and IV fluid hydration. The patient states that on admission she had been taking Aleve and aspirin for 6 months due to back and neck pain along with headaches. Colonoscopy was performed on 05/23/[address] Do and showed diffuse mild limiting colitis more severe in the left colon, likely infectious. The patient also had hypokalemia during her hospital stay. This was supplemented and is improved. Hemoglobin, hematocrit remain stable. Acute kidney injury on admission which has now resolved. Creatinine was 1.1 on admission, now 0.7 today. Patient is being discharged home today. The patient will continue her home antibiotics of Flagyl and Levaquin for 3 weeks. She is to follow up with Dr. Do in [address] Curran in 1 to 2 weeks. DISCHARGE LAB DATA: White blood cell count 6.13, hemoglobin 11.5, hematocrit 35.1, platelet count is 192,000. Sodium 143, potassium 3.4, chloride 108, carbon dioxide 25, BUN 9, creatinine is 0.7. GFR is greater than 60, glucose 98, calcium 8.1, alkaline phosphatase is 89, AST is 11, ALT is 10. DISCHARGE MEDICATIONS: Hydrochlorothiazide 12.5 mg p.o. daily, Lopressor 50 mg p.o. b.i.d., Vasotec 10 mg p.o. daily, verapamil 240 mg p.o. daily, Bentyl 10 mg p.o. t.i.d., Carafate 1 g p.o. 4 times a day, Flagyl 500 mg p.o. q.8 hours, Levaquin 500 mg p.o. daily, omeprazole 40 mg p.o. daily. DISCHARGE DIET: Resume diet as tolerated. DISCHARGE ACTIVITY: Resume normal activity as tolerated. DISPOSITION: We will discharge this patient home with self-care. She will follow up with Dr. Do in 3 weeks and she will follow up with her primary montessori teacher, Dr. Curran in 1 to 2 weeks. Discharge time: 30 minutes Dictated by ISREAL Benedict for Mic Mcintosh MD cc: Marques Curarn MD [facility]
== END 2019-05-25 10:25 | disposition home or self-care (01) | DRG 392 ==
LOC: ED 11:19 → 3S 16:31
PROVIDERS: ATTEND Internal Medicine
PROC: EN.HEAT (2019-05-24 12:20)
CPT/HCPCS: 74177; 80053; 81001; 82270; 82607; 82728; 82746; 83540; 83550; 83735; 85025; 85610; 85730; 86850; 86900; 86901; 87045; 87046; 88305; 88313; 96361; 96365; 96375; 99285; A9270; J1956; J2250; J3480; J7030; Q9966; Q9967; S0030